=== PATIENT | male | born 1985 | race Caucasian/White ===

== ENCOUNTER 2021-09-11 12:50 | Emergency (ER) | payer OTHER ==
[~2021-09-11] VITALS: Ht 185.4 cm; Wt 98.2 kg
[2021-09-11 14:06] VITALS: BP 120/87
== END 2021-09-11 14:30 | disposition home or self-care (01) ==
LOC: M ED 12:50
DX: S00.03XA Contusion of scalp, initial encounter (principal); V43.12XA Car passenger injured in collision with other type car in nontraffic accident, initial encounter; F11.10 Opioid abuse, uncomplicated; F17.200 Nicotine dependence, unspecified, uncomplicated